=== PATIENT | male | born 1960 | race Caucasian/White ===

== ENCOUNTER 2019-06-13 13:01 | Inpatient (IN) | payer SELFPAY ==
[2019-06-13] MEDS ORDERED: Ondansetron PF 4 MG/2 ML Vial ONE (14:18)
[2019-06-13 14:51] LABS: #Lymphocytes 2.3 thou/uL (1.20-3.40); #Monocytes 1.5 thou/uL (0.11-0.59); #Neutrophils 14.9 thou/uL (1.40-6.50); %Basophils 0.1 % (0.0-1.0); %Eosinophils 0.1 % (0.0-10.0); %Lymphocytes 12.1 % (21.0-51.0); %Monocytes 8.1 % (0.0-10.0); %Neutrophils 79.6 % (42.0-75.0); Hemoglobin 15.3 g/dL (14.0-18.0); Mean Corpuscular HGB CONC 34.2 g/dL (32.0-36.0); Mean Corpuscular Hemoglobin 33.9 pg (27.0-31.0); Mean Corpuscular Volume 99.1 fL (78.0-98.0); Mean Platelet Volume 10.2 fL (7.4-10.4); Platelet Count 247 thou/uL (130-400); RBC Distribution Width 12.4 % (11.5-14.5); Red Blood Cell (RBC) Count 4.51 mill/uL (4.70-6.10); White Blood Cell (WBC) Count 18.8 thou/uL (4.8-10.8)
[2019-06-13 15:09] LABS: Calc. Creatinine Clearance 0 mL/min (70-130); Estimated GFR-MDRD 8; Sodium 134 mmol/L (136-145)
[2019-06-13 15:18] LABS: ALT (SGPT) 52 U/L (8-55); AST (SGOT) 26 U/L (5-34); Albumin 3.9 g/dL (3.5-5.0); Alkaline Phosphatase 80 U/L (40-110); Anion Gap 24 mmol/L (10-20); BUN (Urea Nitrogen) 85 mg/dL (8.4-25.7); Bilirubin, Total 0.4 mg/dL (0.2-1.2); CK (CPK) 621 U/L (30-200); Calc. Creatinine Clearance 0 mL/min (70-130); Calcium 9.1 mg/dL (7.8-10.44); Carbon Dioxide 14 mmol/L (22-29); Chloride 101 mmol/L (98-107); Estimated GFR-MDRD 8; Globulin 3.6 g/dL (2.4-3.5); Glucose 90 mg/dL (70-105); Lipase 32 U/L (8-78); Potassium 5.2 mmol/L (3.5-5.1); Protein, Total 7.5 g/dL (6.0-8.3); Sodium 134 mmol/L (136-145)
--- NOTE | 2019-06-13 16:29 | HP ---
PRIMARY CARE PHYSICIAN: [facility]. REASON FOR ADMISSION: Transferred from [facility] for acute kidney failure. HISTORY OF PRESENT ILLNESS: A 59-year-old male who is extremely poor historian. It is very difficult to get history from him because of his fluctuating mind. The patient went to [facility], where he had routine blood test done and he was found with acute kidney failure. His WBC count was also elevated and his potassium was also elevated. The patient was treated with Ringer lactate and he was given calcium gluconate. The patient was subsequently transferred to our emergency room for admission. In our emergency room, the patient had routine blood test done, which showed WBC count 18.8 with MCV 99.1 and creatinine was 7.06 and repeat one 6.96 with potassium 5.2. 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 He reports that he is working almost several hours every day and his work is pretty much in hot and humid weather. He had a heat stroke several years ago, required admission in the hospital. The patient also reports that he had 3-4 heat stroke this year, but this was extreme. On the last Friday when he finished his work and he was returning to another job on the middle of the way he was feeling extremely fatigued, nauseated, and vomiting and that is why he had to stay in nearby [place], [place] in a motel and subsequently , this morning when he was going to another job he started feeling sick with nausea, vomiting and some diarrhea. The patient was not feeling good. He was feeling terrible based on his description. He was feeling very sick and that is why he went to local emergency room for evaluation and subsequently he was transferred to our emergency room for acute kidney failure. PAST MEDICAL HISTORY: Per patient he has history of hypertension and dyslipidemia. PAST SURGICAL HISTORY: The patient denies any previous surgical history. PAST PSYCHIATRIC HISTORY: Unclear, but the patient denies any psychiatric history. SOCIAL HISTORY: The patient is . He is working with [employer]. He drinks alcohol socially and every week. He is a former drug abuser. He smokes about 1 pack per day. He drinks energy drinks frequently. FAMILY HISTORY: No family history of kidney disorder, stroke or cancer. ALLERGIES: NO KNOWN DRUG ALLERGIES. CURRENT HOME MEDICATIONS: 1. Lisinopril 10 mg daily. 2. Aspirin 81 mg daily. EMERGENCY ROOM COURSE: [facility] record completely reviewed. The patient received Ringer lactate, calcium gluconate, and the patient has received 2 L of IV fluid and Zofran 4 mg in our emergency room. REVIEW OF SYSTEM: All review of system reviewed with patient and negative except as mentioned in HPI. PHYSICAL EXAMINATION: VITAL SIGNS: Currently blood pressure 127/114, pulse 100, respiratory rate 18, temperature 97.6, saturation 96% on room air. Weight 77.1 kg. GENERAL: The patient is currently alert, awake, apprehensive. No obvious acute distress. HEENT: Head normocephalic, atraumatic. Eyes: Pupils round, reactive to light. Extraocular muscle intact. ENT: Oropharynx within normal limits. Dry mucous membranes. No oral lesion. No pharyngeal erythema. No exudate. NECK: Supple. No JVD. No thyromegaly. No carotid bruit. No jugular venous distention. LUNGS: Clear to auscultation without any rhonchi or rales. CARDIAC: S1, S2. Regular. Slight tachycardia. No murmur. No gallop. No rub. ABDOMEN: Soft. Bowel sounds present. Nontender. Nondistended. No organomegaly. No mass. No suprapubic tenderness. BACK: Unremarkable. No CVA tenderness. EXTREMITIES: Upper extremities: Passive movement of all joints are normal. Lower extremity: No edema. Good distal pulsation. No calf tenderness. SKIN: No skin rash. HEMATOLOGICAL: No lymphadenopathy. NEUROLOGIC: The patient is moving all 4 limbs. No focal neurological deficit noted. SIGNIFICANT LABORATORY DATA: CBC; WBC 18.8, hemoglobin 15.3, MCV 99.1, platelet 247 with left shift. BMP: Sodium 134, potassium 5.2, chloride 101, carbon dioxide 14, anion gap 24, BUN 85, creatinine 7.06, glucose, calcium 9.1. LFT: AST 26, ALT 52, alkaline phosphatase 80, albumin 3.9, CK 621, lipase 32. ASSESSMENT AND PLAN: 1. Acute kidney failure. 2. Metabolic acidosis with elevated anion gap. 3. Hyperkalemia due to metabolic acidosis and renal failure. 4. Rhabdomyolysis. 5. Leukocytosis with left shift. 6. Tobacco abuse disorder. 7. Dyslipidemia. 8. History of alcohol abuse. PLAN: Full admission to telemetry floor. We will start dextrose with bicarbonate drip at 125 mL/h. Nephrology will be consulted. Renal ultrasound will be obtained. We will check urine sodium and creatinine. We will monitor total CK and renal function. We will avoid nephrotoxins agent. We will give him one dose of Kayexalate if needed, but as potassium is already improving with IV fluid, we will hold on that. We will use amlodipine for blood pressure if needed. We will check urine drug screen as well as hepatitis profile. We will repeat CBC and BMP tomorrow. DVT prophylaxis, heparin 5000 units subcu twice daily. GI prophylaxis Protonix 40 mg IV daily or p.o. daily. CODE STATUS: The patient is full code. The patient's is surrogate decision maker. DISPOSITION PLAN: Based on clinical course, we are expecting the patient's stay in hospital more than 2 midnights. Plan of care discussed with the patient in detail. Job ID: [id number] MTDD
--- NOTE | 2019-06-13 16:59 | RAD ---
PORTABLE CHEST ONE VIEW: History: Syncope. FINDINGS: Heart size and mediastinum are within normal limits. The lungs are clear of any infiltrative process. 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 IMPRESSION: No active intrathoracic disease. POS: [facility]
[2019-06-13 17:18] LABS: Bilirubin Negative (Negative); Blood, Urine 2+ (Negative); Clarity Turbid (Clear); Glucose, Urine (Dipstick) 50 mg/dL (Negative); Leukocyte Negative Leu/uL (Negative); Nitrite Negative (Negative); Protein, Urine (Dipstick) 70 mg/dL (Neg-Trace); Urobilinogen Normal mg/dL (Less than 2)
[2019-06-13 17:23] LABS: Bacteria/HPF 3+ HPF (None Seen); Squamous Epithelial 0-3 HPF (0-3); WBC/HPF 0-3 HPF (0-3)
[2019-06-13] MEDS ORDERED: Sodium Bicarbonate 75 MEQ in Sodium Chloride 0.45% 1,000 ML IV SCH (17:30)
--- NOTE | 2019-06-13 18:15 | CON ---
DATE OF CONSULTATION: 06/13/2019 SERVICE: Nephrology. REQUESTING PHYSICIAN: Jeffrey Juarez DO REASON FOR CONSULTATION: Acute renal failure and hyperkalemia. HISTORY OF PRESENT ILLNESS: A 59-year-old male patient with past medical history significant for hypertension, hyperlipidemia, and chronic body aches, brought in on a transfer from a free-standing ER for further evaluation and treatment of acute renal failure and hyperkalemia. The patient reportedly developed ill feeling after 2 to 3 days ago after walking under the sun for several days. He started feeling bad 2 days ago, which worsened after continued work under the sun and subsequently developed nausea, vomiting, and frequent loose stools associated with generalized weakness, body aches, and dizziness. The patient denied fever, chest pain, but reported difficulty breathing, decreased urine output, poor oral intake and generalized weakness. He, however, denied palpitations, syncope, hematemesis, hematuria, hematochezia, or leg swelling. The patient reported prior history of heat stroke, which was treated in the hospital. At baseline, the patient lives in [place], but is on a work visit here. 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 He reported chronic joint aches for which he takes Aleve 2 tablets every day. He is also on lisinopril daily as well as low-dose aspirin daily. On presentation to the freestanding ER, the patient was found to be hypotensive with systolic blood pressures in 80s and further evaluation showed serum creatinine of 7.7, BUN of 83, and potassium of 6.6. The patient was treated with calcium gluconate as well as 2 L of lactated Ringer's and was subsequently transferred over here for further treatment. The patient received 2 L of normal saline here in the ER as well as Zofran with improvement. He reports feeling better. There has been no vomiting or loose stool since today. PAST MEDICAL HISTORY: 1. Heat stroke. 2. Hypertension. 3. Generalized body aches. 4. Hyperlipidemia. PAST SURGICAL HISTORY: None. FAMILY HISTORY: Mother had lung cancer, status post chemo. Father at age 27 from gunshot injury and the patient does not know father's medical history. SOCIAL HISTORY: The patient works in an [employer] field. He is currently on a work visit. He admitted to daily smoking of about a pack a day. He also drinks alcohol but has not had any alcohol in the last 5 days. He admitted using energy drinks. He denied recreational drug use. ALLERGIES: NO KNOWN DRUG ALLERGIES REPORTED. THE PATIENT, HOWEVER, WAS TOLD THAT BECAUSE OF EARLY OBSERVED TONGUE SWELLING THAT HE MAY BE HAVING ANGIOEDEMA DUE TO LISINOPRIL. CURRENT HOME MEDICATIONS: 1. Lisinopril once daily, dose is unclear at this time. 2. Aleve two tablets daily. 3. Aspirin one tablet daily. 4. Cholesterol pill one tablet daily. REVIEW OF SYSTEMS: Twelve-point review of system performed and was negative other than pertinent positives and negatives included in the History of Present Illness. PHYSICAL EXAMINATION: VITAL SIGNS: Most current vitals showed blood pressure 108/58, pulse of 102, respiratory rate of 18, and SpO2 of 97% on room air. GENERAL: Male patient in no obvious distress. Afebrile. Anicteric. Acyanotic. HEENT: Normocephalic, atraumatic. Oral mucosa is dry. Pupils are reacting to light. NECK: Supple. Nontender with good range of motion. No obvious masses or lymphadenopathy appreciated. No JVD appreciated as well. CARDIOVASCULAR: Regular rhythm and rate, but tachycardic. RESPIRATORY: Fair air entry bilaterally with few transmitted breath sounds. No obvious crackle or rhonchi was appreciated. GASTROINTESTINAL: Full, soft, nontender, and nondistended with normal bowel sounds. EXTREMITIES: Grossly normal looking, atraumatic with no edema or erythema. CENTRAL NERVOUS SYSTEM: Conscious and alert, oriented x3 with appropriate mental status. Cranial nerves II through XII are grossly intact. The patient moves all extremities. PSYCHIATRIC: The patient seems restless and agitated. He, however, is cooperative. DIAGNOSTIC DATA: CMP performed here showed sodium 134, potassium 5.2, chloride 101, CO2 of 14, anion gap 24, BUN 85, creatinine 7.06, glucose 90, calcium 9.1, total bilirubin 0.4, AST 26, ALT 52, alkaline phosphatase 80, total protein 7.5, albumin 3.9, and globulin 3.6. CPK is 621. Lipase is 32. Of note, at the [facility] ER, creatinine was 7.7 and potassium was 6.0. CBC here showed WBC count of 18.8, hemoglobin of 15.3, MCV of 99.1, and platelet of 247. Urinalysis showed yellow turbid urine with pH of 5.5, specific gravity of 1.018, urine protein of 70 mg/dL. Negative ketone, nitrite, bilirubin, and leukocyte esterase. Blood is 2+. Microscopy showed 4 to 6 rbc and 0 to 3 wbc. EKG performed at the [facility] showed normal sinus rhythm with rate of 83. No obvious T-wave changes was noted. Chest x-ray performed here showed normal heart size and mediastinum with clear lungs. ASSESSMENT: 1. Acute renal failure: This is most likely due to hemodynamic factors related to volume depletion and use of lisinopril and NSAID with contribution from rhabdomyolysis. 2. Anion gap metabolic acidosis: Due to acute renal failure. 3. Hyperkalemia: Due to metabolic acidosis and renal failure. 4. Rhabdomyolysis. 5. Systemic inflammatory response given leukocytosis and tachycardia: Sepsis is a concern given history of nausea, vomiting, and frequent loose stools. 6. Possible acute gastroenteritis. 7. Possible heat stroke. 8. Prior history of heat strokes. 9. Dyslipidemia. 10. Tobacco abuse disorder. 11. Chronic use of NSAIDs. PLAN: 1. Aggressive IV fluid therapy with half-normal saline plus 75 mEq of sodium bicarbonate to run at 200 mL/h. 2. We will also get urine electrolytes as well as urine drug screen. 3. Avoid nephrotoxic agent including NSAID and lisinopril at this time. 4. We will consider getting renal ultrasound, if renal function does not improve promptly as expected. 5. Other treatment as per primary attending. Many thanks for involving us in the care of this patient. We will follow along with you. Job ID: [id number]
[2019-06-13] MEDS ORDERED: Ondansetron PF 4 MG/2 ML Vial IVP PRN ×2 (18:35→18:54)
[2019-06-13] MEDS ORDERED: Ondansetron ODT 4 MG TAB SL PRN (18:35)
[2019-06-13] MEDS ORDERED: Acetaminophen 325 MG TAB PO PRN ×2 (18:35→18:54)
[2019-06-13] MEDS ORDERED: Bisacodyl 10 MG SUPP PR PRN (18:54)
[2019-06-13] MEDS ORDERED: Artificial Tears 18 DROP/0.9 ML EA EYE PRN (18:54)
[2019-06-13] MEDS ORDERED: Ondansetron ODT 4 MG TAB PO PRN (18:54)
[2019-06-13] MEDS ORDERED: Zolpidem Tartrate 5 MG TAB PO PRN (18:54)
[2019-06-13] MEDS ORDERED: Labetalol HCl 100 MG/20 ML VIAL SLOW IVP PRN (18:54)
[2019-06-13] MEDS ORDERED: Sodium Chloride 0.65% Nasal 44 ML BOT EA NARE PRN (18:54)
[2019-06-13] MEDS ORDERED: hydrALAZINE 20 MG/ML VIAL SLOW IVP PRN (18:54)
[2019-06-13] MEDS ORDERED: Diabetic Tussin 200 MG/10 ML UDCUP PO PRN (18:54)
[2019-06-13] MEDS ORDERED: Senokot S 8.6-50 MG TAB PO PRN (18:54)
[2019-06-13] MEDS ORDERED: Loperamide HCl 2 MG CAP PO PRN (18:54)
[2019-06-13] MEDS ORDERED: Cepastat Lozenges 1 LOZ PO PRN (18:54)
[2019-06-13] MEDS ORDERED: Calcium Carbonate 500 MG ChewTAB PO PRN (18:54)
[2019-06-13] MEDS ORDERED: Loratadine 10 MG TAB PO PRN (18:54)
[2019-06-13] MEDS ORDERED: Nicotine 21 MG PATCH TD PRN (18:54)
[2019-06-13] MEDS: Sodium Bicarbonate 150 MEQ in Dextrose 5% in Water 1,000 ML IV SCH (20:29)
[2019-06-13] MEDS: Heparin 5,000 UNITS/ML VIAL SC SCH (20:30)
[2019-06-13] MEDS: HYDROcodone/Acetaminophen 5/325 mg Tablet PO PRN (20:34)
--- NOTE | 2019-06-13 20:37 | ULT ---
RENAL ULTRASOUND: Indication: Acute renal failure. Comparison: None. FINDINGS: The right kidney measures 9.9 x 5.4 x 4.7 cm. The left kidney measures 11.1 x 5.7 x 5 cm. There are b ilateral ureteral jets. The visualized bladder is unremarkable appearing. IMPRESSION: No focal renal lesion or hydronephrosis. POS: [facility]
[2019-06-13 21:11] LABS: Amphetamine Detected (NotDetected); Barbiturates Screen Not Detected (NotDetected); Benzodiazepine Screen Not Detected (NotDetected); Cocaine Metabolite Screen Not Detected (NotDetected); Medtox Control Line Valid? VALID (VALID); Medtox Reader # READER 1; Methadone Not Detected (NotDetected); Methamphetamine Detected (NotDetected); Opiate Screen Not Detected (NotDetected); Oxycodone Screen Not Detected (NotDetected); Phencyclidine (PCP) Not Detected (NotDetected); THC/Cannabinoid Screen Not Detected (NotDetected); Tricyclic Screen Not Detected (NotDetected)
[2019-06-14 00:01] VITALS: BMI 23.4
[2019-06-14 05:31] LABS: #Basophils 0.1 thou/uL (0.0-0.2); #Lymphocytes 2.4 thou/uL (1.20-3.40); #Monocytes 1.1 thou/uL (0.11-0.59); #Neutrophils 8.2 thou/uL (1.40-6.50); %Basophils 0.6 % (0.0-1.0); %Eosinophils 0.3 % (0.0-10.0); %Lymphocytes 20.2 % (21.0-51.0); %Monocytes 9.3 % (0.0-10.0); %Neutrophils 69.6 % (42.0-75.0); Hemoglobin 14.5 g/dL (14.0-18.0); Mean Corpuscular HGB CONC 34.5 g/dL (32.0-36.0); Mean Corpuscular Hemoglobin 34.5 pg (27.0-31.0); Platelet Count 219 thou/uL (130-400); RBC Distribution Width 12.4 % (11.5-14.5); Red Blood Cell (RBC) Count 4.21 mill/uL (4.70-6.10); White Blood Cell (WBC) Count 11.7 thou/uL (4.8-10.8)
[2019-06-14 06:23] LABS: Hep A IgM AB Non-Reactive (NonReactive); Hepatitis B Core IgM Abs Non-Reactive (NonReactive); Thyroid Stimulating Hormone 0.3085 uIU/mL (0.35-4.94)
[2019-06-14] MEDS ORDERED: Lorazepam 2 MG/ML VIAL SLOW IVP SCH (06:30)
[2019-06-14 06:34] LABS: CKMB 8.4 ng/mL (0-6.6)
[2019-06-14 06:37] LABS: Hep C IgG Ab Reflex HepC Qnt (NonReactive); Hep C Index 17.86 S/CO (0-0.79)
[2019-06-14] MEDS: Sodium Bicarbonate 150 MEQ in Dextrose 5% in Water 1,000 ML IV SCH ×2 (06:40→16:26)
[2019-06-14 06:46] LABS: ALT (SGPT) 42 U/L (8-55); AST (SGOT) 23 U/L (5-34); Albumin 3.5 g/dL (3.5-5.0); Alkaline Phosphatase 73 U/L (40-110); Anion Gap 16 mmol/L (10-20); BUN (Urea Nitrogen) 70 mg/dL (8.4-25.7); Bilirubin, Total 0.4 mg/dL (0.2-1.2); CK (CPK) 393 U/L (30-200); Calc. Creatinine Clearance 26 mL/min (70-130); Calcium 8.6 mg/dL (7.8-10.44); Carbon Dioxide 18 mmol/L (22-29); Cardiac Risk 3.7 (Less than 4.5); Chloride 106 mmol/L (98-107); Cholesterol 117 mg/dl (< 200 Desired); Estimated GFR-MDRD 21; Globulin 3.7 g/dL (2.4-3.5); Glucose 105 mg/dL (70-105); HDL Cholesterol 32 mg/dL (>60 Neg Risk); LDL Cholesterol, Calculated 66 mg/dL; Phosphorus 4.1 mg/dL (2.3-4.7); Potassium 4.4 mmol/L (3.5-5.1); Protein, Total 7.2 g/dL (6.0-8.3); Sodium 136 mmol/L (136-145); Triglycerides 94 mg/dL (Less than 150); Uric Acid 10.6 mg/dL (3.5-7.2)
[2019-06-14 07:55] LABS: Hep B Surf Ag Reflx Confirmation S/CO (NonReactive)
[2019-06-14 07:57] LABS: HBSAg Index 4752.19 S/CO (0-0.99)
--- NOTE | 2019-06-14 08:03 | PRG ---
DATE OF SERVICE: 06/14/2019 SERVICE: Nephrology. SUBJECTIVE: A 59-year-old male admitted due to acute renal failure as well as nausea and vomiting. The patient reportedly has been walking under the sunlight and subsequently developed nausea, vomiting, and generalized body aches. Reports feeling better. Still having frequent loose stools. Reportedly have had prior history of heat strokes in the past. OBJECTIVE: VITAL SIGNS: Temperature 98.4, pulse 96, respiratory rate 20, SpO2 of 97 on room air, blood pressure is 95/54. GENERAL: Male patient in no obvious distress. Afebrile. Anicteric. Acyanotic. HEENT: Normocephalic, atraumatic. Oral mucosa is moist. CARDIOVASCULAR: Regular rhythm and rate. Normal heart sounds 1 and 2. RESPIRATORY: Fair air entry bilaterally with some transmitted breath sounds. No obvious rhonchi were appreciated. GI: Full, soft, nontender, nondistended with normal bowel sounds. EXTREMITIES: Grossly normal looking atraumatic with no edema or erythema. LIP AND GATE BUILDER: Conscious, alert and oriented x3 with appropriate mental status. DIAGNOSTIC DATA: CBC showed WBC count of 11.7, down from 18.8 on admission; hemoglobin of 14.5; MCV of 100, platelet of 219. CMP showed sodium 136, potassium 4.4, chloride 106, CO2 of 18, BUN 70, creatinine 3.06 down from 7.7 on presentation, glucose 105, calcium 8.6, total bilirubin 0.4, AST 23, ALT 42, alkaline phosphatase 73. Total protein is 7.2, albumin is 3.5, globulin is 3.7. Cardiac markers showed CPK 393 down from 621 yesterday. CK-MB is 8.4 and troponin is 0.03. Uric acid is 10.6 and phosphorus is 4.1. PTH intact is 111.1. Urine drug screen was positive for amphetamine and methamphetamine. ASSESSMENT: 1. Acute renal failure: Due to multiple factors including hemodynamic factors related to volume depletion from poor oral intake and increased GI losses as well as effect of use of lisinopril and NSAIDs. The patient also has rhabdomyolysis from volume depletion and methamphetamine use. Renal function is improving greatly with creatinine down to 3 from admission level of 7. 2. Severe volume depletion/dehydration. 3. Rhabdomyolysis: From volume depletion and methamphetamine use. 4. Polysubstance abuse. The patient admitted to tobacco use. Urine drug screen also was positive for methamphetamine. The patient also admitted to alcohol use. Withdrawal symptoms are a concern. 5. Severe metabolic acidosis: Due to acute kidney injury. GI losses from diarrhea are contributory. 6. Presumed acute gastroenteritis. 7. Possible heat stroke. 8. Hypotension: From volume depletion. PLAN: 1. Continue IV fluid therapy with sodium bicarbonate. 2. Continue to monitor electrolytes and replete as needed. 3. Other treatment as per primary attending. Job ID: [id number]
[2019-06-14 08:38] LABS: Free T4 (Free Thyroxine) 0.93 ng/dL (0.70-1.48)
[2019-06-14] MEDS: Folic Acid 1 MG TAB PO SCH (09:00)
[2019-06-14] MEDS: Thiamine 100 MG TAB PO SCH (09:00)
[2019-06-14] MEDS: Heparin 5,000 UNITS/ML VIAL SC SCH ×2 (09:00→21:36)
[2019-06-14] MEDS: Cyanocobalamin (Vitamin B-12) 1,000 MCG TAB PO SCH (09:00)
[2019-06-14] MEDS: Aspirin 81 mg Enteric Coated Tablet PO SCH (09:00)
--- NOTE | 2019-06-14 10:26 | PDOC.HOSPP ---
- Subjective Encounter Date: 06/14/19 Encounter Time: 08:00 Subjective: pt was sleepy this morning, his renal function improving, no fever - Objective Vital Signs & Weight: Vital Signs (12 hours) Temp Pulse Resp BP Pulse Ox 06/14/19 07:30 92 L 06/14/19 04:00 98.4 F 96 20 95/54 L 97 06/14/19 00:00 98.1 F 90 20 110/66 Weight Weight 154 lb 6 oz Result Diagrams: 06/14/19 04:40 06/14/19 04:40 EKG Reviewed by me: Yes (nsr) Hospitalist ROS - Review of Systems Other: unable to review due to he was sleeping and not participating - Medication Medications: Active Medications Generic Name Dose Route Start Last Admin Trade Name Freq PRN Reason Stop Dose Admin Hydrocodone Bitart/Acetaminophen 1 tab 06/13/19 18:54 06/13/19 20:34 [place] 5/325 PO 1 tab Q4H PRN Administration Moderate Pain (4-6) Aspirin 81 mg 06/14/19 09:00 06/14/19 09:00 Ecotrin PO 81 mg DAILY HUGH Administration Cyanocobalamin 1,000 mcg 06/14/19 09:00 06/14/19 09:00 Vitamin B-12 PO 1,000 mcg DAILY HUGH Administration Folic Acid 1 mg 06/14/19 09:00 06/14/19 09:00 Folvite PO 1 mg DAILY HUGH Administration Guaifenesin 200 mg 06/13/19 18:54 06/14/19 06:41 Robitussin Sf PO 200 mg Q4H PRN Administration Cough Heparin Sodium (Porcine) 5,000 units 06/13/19 21:00 06/14/19 09:00 Heparin SC 5,000 units BID HUGH Administration Sodium Bicarbonate 150 meq/ 1,150 mls @ 125 mls/hr 06/13/19 20:00 06/14/19 06 :40 Dextrose/Water IV 1,150 mls .[id number] HUGH Administration Loperamide HCl 2 mg 06/13/19 18:54 06/14/19 06:41 Imodium PO 2 mg PRN PRN Administration Diarrhea/Loose Stools Thiamine HCl 100 mg 06/14/19 09:00 06/14/19 09:00 Thiamine PO 100 mg DAILY HUGH Administration - Exam General Appearance: NAD Eye: PERRL, anicteric sclera ENT: normocephalic atraumatic, no oropharyngeal lesions Neck: supple, symmetric, no JVD, no thyromegaly, no lymphadenopathy Heart: RRR, no murmur, no gallops, no rubs, normal peripheral pulses Respiratory: CTAB, no wheezes, no rales, no ronchi Gastrointestinal: soft, non-distended, normal bowel sounds, no palpable masses, no hepatomegaly, no splenomegaly Extremities: no cyanosis, no clubbing, no edema Skin: normal turgor, no lesions Musculoskeletal: normal tone Hosp A/P (1) Acute kidney failure Status: Acute (2) Demand ischemia Code(s): I24.8 - OTHER FORMS OF ACUTE ISCHEMIC HEART DISEASE Status: Acute (3) Hyperkalemia Code(s): E87.5 - HYPERKALEMIA Status: Acute (4) Metabolic acidosis Code(s): E87.2 - ACIDOSIS Status: Acute (5) Rhabdomyolysis Code(s): M62.82 - RHABDOMYOLYSIS Status: Acute (6) Alcohol abuse Code(s): F10.10 - ALCOHOL ABUSE, UNCOMPLICATED Status: Chronic (7) Amphetamine abuse Code(s): F15.10 - OTHER STIMULANT ABUSE, UNCOMPLICATED Status: Chronic (8) Macrocytosis Code(s): D75.89 - OTHER SPECIFIED DISEASES OF BLOOD AND BLOOD-FORMING ORGANS Status: Chronic (9) Tobacco abuse Code(s): Z72.0 - TOBACCO USE Status: Chronic (10) Chronic hepatitis C Code(s): B18.2 - CHRONIC VIRAL HEPATITIS C Status: Chronic Qualifiers: Hepatic coma status: without hepatic coma Qualified Code(s): B18.2 - Chronic viral hepatitis C - Plan old records reviewed/req, DVT proph w/heparin 06/14/10- continue bicarbonate drip, monitor renal function, will repeat labs tomorrow, overall improving, free t3 and free t4 normal, transfer to medical floor
[2019-06-14 14:54] LABS: Creatinine, Urine 137.47 mg/dL (63-166)
[2019-06-14] MEDS: HYDROcodone/Acetaminophen 5/325 mg Tablet PO PRN (19:47)
[2019-06-15] MEDS: Sodium Bicarbonate 150 MEQ in Dextrose 5% in Water 1,000 ML IV SCH (02:38)
[2019-06-15 04:18] LABS: #Basophils 0.1 thou/uL (0.0-0.2); #Eosinphils 0.2 thou/uL (0.0-0.7); #Lymphocytes 2.8 thou/uL (1.20-3.40); #Monocytes 0.8 thou/uL (0.11-0.59); #Neutrophils 4.3 thou/uL (1.40-6.50); %Basophils 1.1 % (0.0-1.0); %Eosinophils 2.2 % (0.0-10.0); %Lymphocytes 34.5 % (21.0-51.0); %Monocytes 9.4 % (0.0-10.0); %Neutrophils 52.9 % (42.0-75.0); Hemoglobin 13.1 g/dL (14.0-18.0); Mean Corpuscular HGB CONC 34.2 g/dL (32.0-36.0); Mean Corpuscular Hemoglobin 34.4 pg (27.0-31.0); Mean Platelet Volume 10.5 fL (7.4-10.4); Platelet Count 196 thou/uL (130-400); RBC Distribution Width 12.1 % (11.5-14.5); Red Blood Cell (RBC) Count 3.81 mill/uL (4.70-6.10); White Blood Cell (WBC) Count 8.1 thou/uL (4.8-10.8)
[2019-06-15 04:40] LABS: ALT (SGPT) 32 U/L (8-55); AST (SGOT) 21 U/L (5-34); Albumin 3.1 g/dL (3.5-5.0); Alkaline Phosphatase 58 U/L (40-110); Anion Gap 10 mmol/L (10-20); BUN (Urea Nitrogen) 40 mg/dL (8.4-25.7); Bilirubin, Total 0.3 mg/dL (0.2-1.2); CK (CPK) 172 U/L (30-200); Calc. Creatinine Clearance 62 mL/min (70-130); Carbon Dioxide 29 mmol/L (22-29); Chloride 101 mmol/L (98-107); Estimated GFR-MDRD 57; Globulin 3.2 g/dL (2.4-3.5); Glucose 133 mg/dL (70-105); Potassium 4.1 mmol/L (3.5-5.1); Protein, Total 6.3 g/dL (6.0-8.3); Sodium 136 mmol/L (136-145)
[2019-06-15 07:37] VITALS: BP 120/64; TEMP 98.2
[2019-06-15] MEDS: Thiamine 100 MG TAB PO SCH (09:03)
[2019-06-15] MEDS: Aspirin 81 mg Enteric Coated Tablet PO SCH (09:03)
[2019-06-15] MEDS: Cyanocobalamin (Vitamin B-12) 1,000 MCG TAB PO SCH (09:03)
[2019-06-15] MEDS: Folic Acid 1 MG TAB PO SCH (09:03)
[2019-06-15] MEDS: Heparin 5,000 UNITS/ML VIAL SC SCH (09:07)
--- NOTE | 2019-06-15 09:53 | PRG ---
DATE OF SERVICE: 06/15/2019 SERVICE: Nephrology. SUBJECTIVE: A 59-year-old male admitted due to acute renal failure and hyperkalemia. The patient also developed generalized body aches, nausea, and vomiting as well as diarrhea. Clinically improved. Reports feeling better. Denied nausea, vomiting, or diarrhea. OBJECTIVE: VITAL SIGNS: Temperature 98.2, pulse 86, respiratory rate 16, SpO2 of 95% on room air, and blood pressure is 120/64. GENERAL: Male patient in no obvious distress. Afebrile. Anicteric. Acyanotic. HEENT: Normocephalic and atraumatic. Oral mucosa is moist. CARDIOVASCULAR: Regular rhythm and rate with normal heart sounds 1 and 2. RESPIRATORY: Fair air entry bilaterally with no obvious crackle or rhonchi or use of accessory muscles. GI: Full, soft, nontender, nondistended with normal bowel sounds. EXTREMITIES: Grossly normal looking, atraumatic with no edema or erythema. QUALITY CONTROL LAB TECH: Conscious, alert, oriented x3 with appropriate mental status. DIAGNOSTIC DATA: CMP showed sodium 136, potassium 4.1, chloride 101, CO2 of 29, BUN 40, creatinine 1.29, glucose 133, calcium 8.0, total bilirubin 0.3, AST 21, ALT 32, alkaline phosphatase 58. Total protein is 6.3, albumin is 3.1. CPK is 172. Of note, creatinine was 7.7 on admission and CPK was 621. Hepatitis panel is positive for hepatitis B antigen as well as hepatitis C antibody. These have been sent for confirmation. ASSESSMENT: 1. Acute renal failure: Due to hemodynamic factors related to volume depletion as well as rhabdomyolysis. Use of lisinopril and NSAIDs also was contributory. Renal function is improving with bicarb infusion. 2. Severe volume depletion/dehydration. 3. Rhabdomyolysis. 4. Polysubstance abuse. 5. Severe metabolic acidosis: Resolved. 6. Presumed acute gastroenteritis. 7. Positive hepatitis B and C antigen and antibody respectively. 8. Hyperkalemia: Resolved. 9. Hypotension: Due to volume depletion, resolved. PLAN: Discontinue sodium bicarbonate. [place] oral intake advised. Other treatment as per primary attending. We will sign off at this time as renal function is close to baseline. The patient can be discharged from Nephrology point of view. Job ID: [id number]
--- NOTE | 2019-06-15 10:39 | DIS ---
DATE OF ADMISSION: 06/13/2019 DATE OF DISCHARGE: 06/15/2019 PRIMARY CARE PHYSICIAN: [facility] Call admission. DISCHARGE DISPOSITION: Home. PRIMARY DISCHARGE DIAGNOSES: 1. Acute kidney failure, prerenal. 2. Metabolic acidosis due to renal failure. 3. Hyperkalemia due to renal failure, improved. 4. Rhabdomyolysis, improved. 5. Demand ischemia. SECONDARY DISCHARGE DIAGNOSES: History of hypertension, polysubstance abuse, macrocytosis, chronic hepatitis C, tobacco abuse, alcohol abuse, methamphetamine abuse. PRIMARY PROCEDURE/OPERATION: None. RADIOLOGICAL INVESTIGATION: Chest x-ray normal. Renal ultrasound normal. SIGNIFICANT LABORATORY DATA: WBC 8.1, hemoglobin 13.1, MCV 101, and platelets 196. Sodium 136, creatinine 1.29. Liver enzymes normal. Urine drug screen positive for amphetamine and methamphetamine, hepatitis C positive. DISCHARGE MEDICATIONS: 1. Aspirin 81 mg p.o. daily. 2. Vitamin B12 of 1000 mcg p.o. daily. 3. Folic acid 1 mg daily. 4. Thiamine 100 mg daily. CONTRAINDICATION: None. CODE STATUS: Full code. INPATIENT GEOTECHNICAL FIELD TECHNICIAN: Dr. Pete, Nephrology, was consulted while in hospital. TEST RESULTS PENDING ON DISCHARGE: None. ALLERGIES: NO KNOWN DRUG ALLERGIES. DISCHARGE PLAN: Posthospital, the patient will follow up with Nephrology in 1 week. The patient will make appointment with primary care physician in 1 week. The patient is instructed to avoid any strenuous physical activity. HOSPITAL COURSE: This is a 59-year-old male who was admitted by me. Please see my HPI for further details. The patient was taking lisinopril and he was working in hot humid weather. He was significantly dehydrated. He also had nausea, vomiting, diarrhea. He was evaluated at other emergency room where he was found with acute kidney failure, metabolic acidosis, and hyperkalemia. He was sent to our emergency room. We admitted to the telemetry floor and we hydrated him with IV fluid. We also gave him bicarbonate drip. His electrolytes corrected. His renal function improved to normal. He has underlying chronic hepatitis C. While in hospital, we noted that his blood pressure was running normal and that is why we discontinued blood pressure medication. We also advised him to avoid any kind of NSAID. The patient was educated about diet and avoiding nephrotoxins discussed with him. We also told him that he has hepatitis C and that is why he will need outpatient followup with primary care physician and material scheduler for treatment. PHYSICAL EXAMINATION: I have seen and examined the patient at bedside today. VITAL SIGNS: Currently, temperature 98.2, pulse 86, respiratory rate 16, saturation 95% on room air, and blood pressure 120/64. GENERAL: The patient is alert and oriented. NECK: Supple. No JVD. LUNGS: Clear to auscultation without any rhonchi or rales. CARDIAC: S1 and S2, regular without any murmur. ABDOMEN: Soft and benign. EXTREMITIES: No edema. NEUROLOGIC: Nonfocal examination. CONDITION: The patient is medically stable for discharge today. Job ID: [id number]
[2019-06-15 16:09] LABS: Hep B Surface AG-Rflx Sendout Confirm. indicated (Negative)
--- NOTE | 2019-06-16 05:55 | PQF ---
[employer] Win[employer] Viewer KENDALL AIDEN MAURO MD [id number] CLINICAL DOCUMENTATION CLARIFICATION FORM: POST DISCHARGE Addendum to original discharge summary date: ____ Late entry note date: __ DATE: 06/16/19 ATTN:Aiden Mendoza Please exercise your independent, professional judgment in responding to the clarification form. Clinical indicators are provided on the bottom of this form for your review Can you please further specify if Sepsis is ruled in or ruled out? Sepsis [ ] Ruled in diagnosis [ ] Continue to treat [ ] Resolved [ ] Ruled out diagnosis [ ] Cannot rule out diagnosis [ ] Other diagnosis please specify [ ] Unable to determine In addition, please specify: Present on Admission (POA): [ ] Yes [ ] No [ ] Unable to determine For continuity of documentation, please document condition throughout progress notes and discharge summary. Thank You. CLINICAL INDICATORS - SIGNS / SYMPTOMS / LABS H and P 06/13 pg.1 the patient had routine blood test done which showed WBC count 18.8 with MCV 99.1 and creatinine was 7.06 H and P 06/13 pg.2- Vital signs BP 127/114, pulse 100, respiratory 18, temperature 97.6 H and P 06/13 pg.3- Leukocytosis with left shift Consult 06/13 Dr. Pete pg.3 - Systemic inflammatory response given leukocytosis and tachycardia Consult 06/13 Dr. Pete pg.3 - Sepsis is a concern given History of nausea, vomiting and frequent loose stool Consult 06/13 Dr. Pete pg.3 - Possible acute gastroenteritis RISK FACTORS Hypertension- H and P pg.1 Acute kidney Injury- H and P pg.3 metabolic acidosis- Back nd P pg.3 Rhabdomyolysis- H and P pg.3 Severe volume depletion/dehydration-PN Dr. Pete 06/15 pg.1 Presumed acute gastroenteritis- PN Dr. Pete 06/15 pg2 TREATMENTS IV Fluids- NOV 21 Renal Consult- Dr. Pete 06/13 (This form is maintained as a part of the permanent medical record) 2014 [email or web address]. All Rights Reserved Bobo [email or web address] [not provided] [email or web address]
[2019-06-16 14:09] LABS: HCV log10 5.462 (.); Hep C PCR-Quant 290000 IU/mL (.)
== END 2019-06-15 10:26 | disposition home or self-care (01) | DRG 683 ==
LOC: ERS 13:01 → 2NO 16:45 → ONC 06-14 13:33
PROVIDERS: ADMIT Internal Medicine; ATTEND Internal Medicine
DX: N17.9 Acute kidney failure, unspecified (principal); E87.2 Acidosis; M62.82 Rhabdomyolysis; I24.8 Other forms of acute ischemic heart disease; I10 Essential (primary) hypertension; E78.5 Hyperlipidemia, unspecified; F17.210 Nicotine dependence, cigarettes, uncomplicated; E87.5 Hyperkalemia; D72.829 Elevated white blood cell count, unspecified; F10.10 Alcohol abuse, uncomplicated; E86.0 Dehydration; B18.2 Chronic viral hepatitis C; F15.10 Other stimulant abuse, uncomplicated; E78.00 Pure hypercholesterolemia, unspecified; Z79.82 Long term (current) use of aspirin; Z79.899 Other long term (current) drug therapy
CPT/HCPCS: 36415; 71045; 76770; 80053; 80061; 80074; 80306; 81003; 81015; 82550; 82553; 82570; 83690; 83970; 84100; 84156; 84300; 84439; 84443; 84481; 84484; 84550; 85025; 87086; 87340; 87522; 96361; 96374; J1644; J2060; J2405; J7070